=== PATIENT | female | born 1965 | race Caucasian/White ===

== ENCOUNTER 2017-01-14 10:32 | Inpatient (IN) | payer OTHER ==
[~2017-01-14] VITALS: Ht 162.6 cm; Wt 85.8 kg
[2017-01-14 12:42] LABS: EOSINOPHIL (%) 1.6 % (0-5); EOSINOPHIL COUNT 0.1 K/uL (0-0.3); HEMATOCRIT 37.6 % (36.0-46.0); IMMATURE GRANULOCYTE (%) 0.2 % (0.0-0.7); INSTRUMENT ABS NEUTROPHIL CT 4.1 K/uL; LYMPHOCYTE COUNT 1.2 K/uL (1.0-2.8); MCH 30.5 PG (29.0-34.0); MCHC 33.2 G/DL (30.0-36.0); MCV 91.7 FL (83-99); MEAN PLAT.VOLUME 9.5 uM^3 (9.5-12.4); MONOCYTE (%) 6.4 % (3-12); MONOCYTE COUNT 0.4 K/uL (0-0.8); NEUTROPHIL (%) 70.8 % (45-76); NEUTROPHIL COUNT 4.1 K/uL (1.8-6.4); PLATELET COUNT 254 K/uL (156-360); RBC DIS.WIDTH-CV 12.6 % (11.8-14.6); RBC DIS.WIDTH-SD 42.4 % (39-53); WHITE BLOOD COUNT 5.8 K/uL (4.1-10.2)
[2017-01-14 12:51] LABS: CHLORIDE 103 mEq/L (99-109); POTASSIUM 4.2 mEq/L (3.7-5.4); SODIUM 139 mEq/L (136-147)
[2017-01-14 12:54] LABS: GLUCOSE 85 mg/dL (70-99)
[2017-01-14 12:55] LABS: ANION GAP 9 MEQ/L (2-14)
[2017-01-14 12:56] LABS: TOTAL BILIRUBIN 0.9 mg/dL (0.0-1.0)
[2017-01-14 12:57] LABS: ALKALINE PHOSPHATASE 380 IU/L (3-129); GFR ESTIMATE (CALCULATED) > 59 mL/min/
[2017-01-14 12:59] LABS: UREA NITROGEN (BUN) 10 mg/dL (9-23)
[2017-01-14] MEDS ORDERED: WELLBUTRIN XL300 MG PO (14:14)
[2017-01-14] MEDS ORDERED: BUSPAR10 MG PO (14:14)
[2017-01-14] MEDS ORDERED: VOLTAREN75 MG PO (14:15)
[2017-01-14] MEDS ORDERED: CLARITIN-D 21 TABLET PO (14:15)
[2017-01-14] MEDS ORDERED: DAILY VITE1 EAC1 PO (14:15)
[2017-01-14] MEDS ORDERED: AMBIEN10 MG PO (14:15)
[2017-01-14] MEDS ORDERED: VITAMIN B-12500 MC5 SL (14:20)
[2017-01-14] MEDS ORDERED: VITRON-C TABLE1 EACH PO (14:20)
[2017-01-14] MEDS ORDERED: CALCITRATE + D1 EACH PO (14:20)
[2017-01-14] MEDS ORDERED: IMODIUM A-D2 M2 PO (14:21)
[2017-01-14] MEDS ORDERED: ESTROVEN 155 M155 MG PO (14:21)
[2017-01-14 16:29] VITALS: BP 148/58
[2017-01-14 17:00] VITALS: BP 148/58
[2017-01-14 18:24] LABS: INTERNAL CONTROL VALID? YES
[2017-01-14 19:00] LABS: C DIFF TOXIN NEGATIVE (NEGATIVE)
[2017-01-14 19:01] LABS: PROBE CHECK PASS; SPECIMEN PROCESSING CONTROL PASS
[2017-01-14 19:45] VITALS: BP 151/78
[2017-01-15 00:19] VITALS: BP 162/77
[2017-01-15 04:50] VITALS: BP 120/61
[2017-01-15 07:30] VITALS: BP 160/79
[2017-01-15 07:30] LABS: ALKALINE PHOSPHATASE 294 IU/L (3-129); ANION GAP 9 MEQ/L (2-14); CHLORIDE 104 MEQ/L (99-109); DIRECT BILIRUBIN 0.2 mg/dL (0.0-0.3); GFR ESTIMATE (CALCULATED) > 59 mL/min/; GLUCOSE 55 mg/dL (70-99); POTASSIUM 3.9 MEQ/L (3.7-5.4); SAMPLE HEMOLYSIS CHECK 0; SAMPLE ICTERIC CHECK 0; SAMPLE LIPEMIA CHECK 0; SODIUM 139 MEQ/L (136-147); TOTAL BILIRUBIN 0.8 MG/DL (0.0-1.0); UREA NITROGEN (BUN) 9 mg/dL (9-23)
[2017-01-15 07:38] LABS: INTER. NORMALIZED RATIO 1.1; PROTHROMBIN TIME 11.6 SEC (10.2-12.9)
[2017-01-15 07:54] LABS: FERRITIN 63 NG/ML (10-291)
[2017-01-15 10:29] LABS: ANTI-HEPATITIS A VIRUS (IGM) Nonreactive; HAV INDEX 0.13
[2017-01-15 10:30] LABS: ANTI-HEPATITIS B CORE (IGM) Nonreactive; HBC IgM INDEX 0.08
[2017-01-15 10:31] LABS: ANTI-HEPATITIS A VIRUS (IGM) Nonreactive; HAV INDEX 0.15; HBSG INDEX 0.16
[2017-01-15 10:33] LABS: ANTI-HEPATITIS B CORE (IGM) Nonreactive; HBC IgM INDEX 0.07
[2017-01-15 11:20] VITALS: BP 131/73
[2017-01-15 11:30] LABS: POINT-OF-CARE METER ID UU14208750
[2017-01-15 15:35] VITALS: BP 140/80
[2017-01-15 15:35] LABS: POC NON-PRINT COM 1 ND
[2017-01-15 23:25] VITALS: BP 137/72
[2017-01-16 06:19] LABS: HEMATOCRIT 32.8 % (36.0-46.0); MCH 31.3 PG (29.0-34.0); MCHC 34.1 G/DL (30.0-36.0); MCV 91.6 FL (83-99); MEAN PLAT.VOLUME 9.5 uM^3 (9.5-12.4); PLATELET COUNT 235 K/uL (156-360); RBC DIS.WIDTH-CV 12.4 % (11.8-14.6); RBC DIS.WIDTH-SD 41.9 % (39-53); RED BLOOD COUNT 3.58 M/uL (3.80-5.20); WHITE BLOOD COUNT 4.6 K/uL (4.1-10.2)
[2017-01-16 06:45] LABS: ALKALINE PHOSPHATASE 259 IU/L (3-129); ANION GAP 10 MEQ/L (2-14); CHLORIDE 104 MEQ/L (99-109); GFR ESTIMATE (CALCULATED) > 59 mL/min/; GLUCOSE 60 mg/dL (70-99); POTASSIUM 3.6 MEQ/L (3.7-5.4); SAMPLE HEMOLYSIS CHECK 0; SAMPLE ICTERIC CHECK 0; SAMPLE LIPEMIA CHECK 0; SODIUM 138 MEQ/L (136-147); UREA NITROGEN (BUN) 10 mg/dL (9-23)
[2017-01-16 06:50] LABS: TOTAL BILIRUBIN 0.6 MG/DL (0.0-1.0)
[2017-01-16 07:10] VITALS: BP 146/86
[2017-01-16 11:42] LABS: POINT-OF-CARE METER ID UU14208750
[2017-01-16 12:16] VITALS: BP 116/65
[2017-01-16 15:47] VITALS: BP 124/68
[2017-01-16 23:18] VITALS: BP 110/61
[2017-01-17 07:10] VITALS: BP 118/53
[2017-01-17 07:12] LABS: HEMATOCRIT 33.1 % (36.0-46.0); MCH 31.7 PG (29.0-34.0); MCHC 34.1 G/DL (30.0-36.0); MEAN PLAT.VOLUME 9.8 uM^3 (9.5-12.4); PLATELET COUNT 232 K/uL (156-360); RBC DIS.WIDTH-CV 12.5 % (11.8-14.6); RBC DIS.WIDTH-SD 42.5 % (39-53); RED BLOOD COUNT 3.56 M/uL (3.80-5.20); WHITE BLOOD COUNT 5.1 K/uL (4.1-10.2)
[2017-01-17 07:35] LABS: ALKALINE PHOSPHATASE 216 IU/L (3-129); ANION GAP 5 MEQ/L (2-14); CHLORIDE 104 MEQ/L (99-109); GFR ESTIMATE (CALCULATED) > 59 mL/min/; GLUCOSE 86 mg/dL (70-99); POTASSIUM 4.2 MEQ/L (3.7-5.4); SAMPLE HEMOLYSIS CHECK 0; SAMPLE ICTERIC CHECK 0; SAMPLE LIPEMIA CHECK 0; SODIUM 141 MEQ/L (136-147); TOTAL BILIRUBIN 0.5 MG/DL (0.0-1.0); UREA NITROGEN (BUN) 14 mg/dL (9-23)
[2017-01-17 22:48] LABS: ALPHA-1-ANTITRYPSIN+ 151 mg/dL (83-199)
[2017-01-18 22:16] LABS: MITOCHONDRIAL (M2) ANTIBODIES+ 38.4 U (<=20.0)
[2017-01-19 14:37] LABS: STRIATED (SKELETAL) MUSCLE AB+ NEGATIVE (NEGATIVE)
== END 2017-01-17 09:20 | disposition home or self-care (01) | DRG 392 ==
LOC: EME 10:32 → EDOF 14:30 → 2EAST 14:30 → ENRESERV 15:15 → 2EAST 16:25
PROVIDERS: Emergency Medicine; Internal Medicine; Internal Medicine Gastroenterology
PROC: 0DBK8ZX Excision of Ascending Colon, Via Natural or Artificial Opening Endoscopic, Diagnostic (ICD-10-PCS; principal; 2017-01-16)
DX: A08.4 Viral intestinal infection, unspecified (principal); K75.9 Inflammatory liver disease, unspecified; K83.8 Other specified diseases of biliary tract; K52.89 Other specified noninfective gastroenteritis and colitis; Z98.84 Bariatric surgery status; G47.00 Insomnia, unspecified; M79.1 Myalgia; F41.9 Anxiety disorder, unspecified; Z82.49 Family history of ischemic heart disease and other diseases of the circulatory system; Z82.5 Family history of asthma and other chronic lower respiratory diseases; Z83.3 Family history of diabetes mellitus; G89.29 Other chronic pain
CPT/HCPCS: 74022; 74177; 74183; 80053; 80074; 82103 90; 82248; 82272; 82390; 82728; 82948; 83516 90; 83630; 85025; 85027; 85610; 86038; 86255 90; 86256 90; 86705; 86709; 87340; 87493; 87506; 88305; 88313; 99281; 99285; J2250; J2405; J7030

== ENCOUNTER → 2017-04-05 | Outpatient (CLI) | payer OTHER ==
[~2017-04-05] MED LIST: AMBIEN10 MG PO; BUSPAR10 MG PO; CALCITRATE + D1 EACH PO; CLARITIN-D 21 TABLET PO; DAILY VITE1 EAC1 PO; ESTROVEN 155 M155 MG PO; IMODIUM A-D2 M2 PO; VITAMIN B-12500 MC5 SL; VITRON-C TABLE1 EACH PO; VOLTAREN75 MG PO; WELLBUTRIN XL300 MG PO
== END | disposition home or self-care (01) ==
LOC: RAD 15:47
DX: M16.11 Unilateral primary osteoarthritis, right hip (principal); M25.561 Pain in right knee
CPT/HCPCS: 73501; 73562

== ENCOUNTER → 2017-05-01 | Outpatient (CLI) | payer OTHER | END | disposition home or self-care (01) | LOC: MRI 13:05 → RAD 13:30 | DX: M16.0 Bilateral primary osteoarthritis of hip (principal); M25.451 Effusion, right hip; M25.851 Other specified joint disorders, right hip; M25.561 Pain in right knee; M17.11 Unilateral primary osteoarthritis, right knee | CPT/HCPCS: 73721 ==

== ENCOUNTER → 2017-11-07 | Outpatient (CLI) | payer OTHER | END | disposition home or self-care (01) | LOC: EKG 07:42 | DX: I07.1 Rheumatic tricuspid insufficiency (principal); I05.1 Rheumatic mitral insufficiency | CPT/HCPCS: 93306 ==

== ENCOUNTER → 2017-12-11 | Outpatient (CLI) | payer OTHER | END | disposition home or self-care (01) | LOC: RAD 11:38 | DX: N89.8 Other specified noninflammatory disorders of vagina (principal); N95.0 Postmenopausal bleeding | CPT/HCPCS: 76856 ==

== ENCOUNTER → 2018-02-07 | Outpatient (CLI) | payer OTHER | END | disposition home or self-care (01) | LOC: RAD 10:57 | DX: R07.9 Chest pain, unspecified (principal) | CPT/HCPCS: 75574 ==